=== PATIENT | female | born 1935 | race Caucasian/White ===

== ENCOUNTER 2016-09-14 18:53 | Emergency (ER) | payer OTHER ==
[~2016-09-14] VITALS: Ht 160 cm; Wt 69.8 kg
[~2016-09-14 18:53] MED LIST: AMLODIPINE BESY10 MG PO; ASPIR 8181 M1 PO; ASPIR-LOW81 MG PO; AVAPRO300 MG PO; Aspirin Chewable PO; BISACODYL SUPP10 MG PR; BISACODYL5 MG PO; CELEBREX200 MG PO; CIPRO500 MG PO; CIPROFLOXACIN500 M1 PO; CYANOCOBALAM1000 MCG PO; Detrol LA PO; EVAC-U-GEN8.6 MG PO; FERROUS SULFAT325 MG PO; Feosol PO; HUMULIN N100 UNIT/2 SC; HUMULIN NP100 UNIT/1 SC; HYDROCHLOROTHIA25 MG PO; Hydrodiuril,Oretic,E PO; IRBESARTAN300 MG PO; LIDOCAINE700 MG TD; LOSARTAN POTAS100 MG PO; LOTREL 10/21 CAPSULE PO; Levaquin PO; MELOXICAM15 MG PO; METOPROLOL TART50 MG PO; NOVOLIN N100 UNITS/ SC; NOVOLOG PE100 UNITS/ SC; OXYBUTYNIN CHLO15 MG PO; PANTOPRAZOLE SO40 MG PO; PERCOCET 5/31 TABLET PO; PLAVIX75 MG PO; PRAVACHOL20 MG PO; PRAVASTATIN SOD20 MG PO; PRAVASTATIN SOD40 MG PO; Remove Lidoderm Patch TD; SENNA-TIME S T1 EACH PO; THERAGRAN1 TABLET PO; TOPROL XL100 MG PO; TRAMADOL HCL50 MG PO; TYLENOL REGULA325 MG PO; Tums,OsCal PO; VITAMIN D1000 INTUN PO; ZOLOFT50 MG PO; Zoloft PO
[2016-09-14 19:55] LABS: EOSINOPHIL (%) 0.8 % (0-5); EOSINOPHIL COUNT 0.1 K/uL (0-0.3); IMMATURE GRANULOCYTE (%) 0.1 % (0.0-0.7); IMMATURE GRANULOCYTE COUNT 0.1 K/uL; MCH 27.9 PG (29.0-34.0); MCHC 32.6 G/DL (30.0-36.0); MCV 85.6 FL (83-99); MEAN PLAT.VOLUME 8.8 uM^3 (9.5-12.4); MONOCYTE (%) 7.2 % (3-12); MONOCYTE COUNT 0.5 K/uL (0-0.8); NEUTROPHIL (%) 77.4 % (45-76); NEUTROPHIL COUNT 5.6 K/uL (1.8-6.4); PLATELET COUNT 176 K/uL (156-360); RBC DIS.WIDTH-CV 14.9 % (11.8-14.6); RBC DIS.WIDTH-SD 45.7 % (39-53); RED BLOOD COUNT 4.44 M/uL (3.80-5.20); WHITE BLOOD COUNT 7.2 K/uL (4.1-10.2)
[2016-09-14 19:59] LABS: ADD MIUA? YES; BILIRUBIN NEGATIVE; BLOOD NEGATIVE; COLOR YELLOW ((YELLOW)); GLUCOSE (STRIP) NEGATIVE; KETONES NEGATIVE; LEUKOCYTES MODERATE; NITRITE NEGATIVE; PH, URINE 6.5 (5-8); PROTEIN (STRIP) NEGATIVE; SPECIFIC GRAVITY 1.009 (1.000-1.030); UROBILINOGEN 0.2 MG/DL (0.2-1.0)
[2016-09-14 20:03] LABS: CHLORIDE 104 mEq/L (99-109); POTASSIUM 4.5 mEq/L (3.7-5.4); SODIUM 138 mEq/L (136-147)
[2016-09-14 20:05] LABS: GLUCOSE 93 mg/dL (70-99)
[2016-09-14 20:06] LABS: ANION GAP 13 MEQ/L (2-14)
[2016-09-14 20:07] LABS: TOTAL BILIRUBIN 0.3 mg/dL (0.0-1.0)
[2016-09-14 20:09] LABS: ALKALINE PHOSPHATASE 121 IU/L (3-129); GFR ESTIMATE (CALCULATED) > 59 mL/min/
[2016-09-14 20:10] LABS: UREA NITROGEN (BUN) 22 mg/dL (9-23)
[2016-09-14 20:22] LABS: BACTERIA 1+; CASTS NONE SEEN /LPF; CRYSTALS NONE SEEN; EPITHELIAL CELLS RARE; MUCUS NONE SEEN; PATHOLOGICAL CAST NONE SEEN; RED BLOOD CELLS 0-5 /HPF (0-5); SMALL ROUND CELL NONE SEEN; UCUL ADDED? YES; WHITE BLOOD CELLS TNTC /HPF (0-5); YEAST-LIKE CELL NONE SEEN
[2016-09-14] MEDS ORDERED: KEFLEX500 MG PO (21:14)
[2016-09-14 22:30] VITALS: BP 142/68
== END 2016-09-14 23:21 | disposition home or self-care (01) ==
LOC: EME → EDBD 18:53 → EME 23:21
PROVIDERS: Emergency Medicine
DX: N39.0 Urinary tract infection, site not specified (principal); R41.82 Altered mental status, unspecified; E11.9 Type 2 diabetes mellitus without complications; I10 Essential (primary) hypertension; Z87.440 Personal history of urinary (tract) infections; Z86.73 Personal history of transient ischemic attack (TIA), and cerebral infarction without residual deficits
CPT/HCPCS: 70450; 80053; 81003; 85025; 87077; 87086; 87186; 99281; 99285; J0696; J7050